=== PATIENT | male | born 1985 | race Two or more races ===

== ENCOUNTER 2018-06-13 19:05 | Emergency (ER) | payer MEDICAID ==
[~2018-06-13] VITALS: Ht 182.9 cm; Wt 74.8 kg
--- NOTE | 2018-06-13 19:20 | NUR ---
ED Nurse Note: pt is not on the waiting room when called
[2018-06-13] MEDS ORDERED: NKM (19:47)
[2018-06-13 20:00] VITALS: BP 126/69
--- NOTE | 2018-06-13 20:00 | NUR ---
ED Nurse Note: pt walked in c/o headache, sore throat and cough x 2 weeks. Pt is AO x 4times, VSS, on room air no distress. DEBID seen Pt at bedside.
[2018-06-13] MEDS ORDERED: IBUPROFEN600 MG ORAL (20:27)
[2018-06-13] MEDS ORDERED: AMOXICILLIN500 MG ORAL (20:27)
[2018-06-13 20:30] VITALS: BP 130/70
[2018-06-13 20:33] VITALS: BP 130/70
--- NOTE | 2018-06-13 20:33 | NUR ---
ER DISCHARGE NOTE: Patient is cleared to be discharged per ERMD, pt is aox4, on room air, with stable vital signs. pt was given dc and prescription instructions, pt was able to verbalize understanding, pt id band and removed without complications. pt is able to ambulate with steady gait. pt took all belongings.
--- NOTE | 2018-06-14 14:20 | Emergency Room Report ---
History of Present Illness General Chief Complaint: Flu Like Symptoms Source: Patient Present Illness HPI 32-year-old male presents ED for evaluation. Patient complaining of cough, sore throat, headache 2 weeks. Pain is dull, 5 out of 10, nonradiating. Cough productive with yellowish phlegm. denies fevers or chills. denies sick contacts or recent travels. Has tried [id number] medication without relief. Vaccinations up-to-date. No other aggravating relieving factors. Denies any other associated symptoms Allergies: Coded Allergies: ACETAMINOPHEN (Verified Allergy, Unknown, 06/13/18) Patient History Past Medical History: none Past Surgical History: none Pertinent Family History: none Social History: Denies: smoking, alcohol use, drug use Immunizations: UTD Reviewed Nursing Documentation: PMH: Agreed; PSxH: Agreed Nursing Documentation-PMH Past Medical History: No Stated History Review of Systems All Other Systems: negative except mentioned in HPI Physical Exam Vital Signs Date Time Temp Pulse Resp B/P (MAP) Pulse Ox O2 Delivery O2 Flow Rate FiO2 06/13/18 19:44 98.1 85 16 128/78 96 Nasal Cannula Sp02 EP Interpretation: reviewed, normal General Appearance: no apparent distress, alert, GCS 15, non-toxic Head: normocephalic, atraumatic Eyes: bilateral eye normal inspection, bilateral eye PERRL ENT: hearing grossly normal, normal pharynx, no angioedema, normal voice Neck: full range of motion, supple/symm/no masses Respiratory: chest non-tender, lungs clear, normal breath sounds, speaking full sentences Cardiovascular #1: regular rate, rhythm, no edema Cardiovascular #2: 2+ carotid (R), 2+ carotid (L), 2+ radial (R), 2+ radial (L) , 2+ dorsalis pedis (R), 2+ dorsalis pedis (L) Gastrointestinal: normal bowel sounds, non tender, soft, non-distended, no guarding, no rebound Rectal: deferred Genitourinary: normal inspection, no CVA tenderness Musculoskeletal: back normal, gait/station normal, normal range of motion, non- tender Neurologic: alert, oriented x3, responsive, motor strength/tone normal, sensory intact, speech normal Psychiatric: judgement/insight normal, memory normal, mood/affect normal, no suicidal/homicidal ideation Reflexes: 3+ bicep (R), 3+ bicep (L), 3+ tricep (R), 3+ tricep (L), 3+ knee (R) , 3+ knee (L) Skin: normal color, no rash, warm/dry, well hydrated Lymphatic: no adenopathy Medical Decision Making Diagnostic Impression: Primary Impression: Atypical pneumonia ER Course Hospital Course 32-year-old male presents ED complaining of bodyaches and cough x2 weeks Differential diagnoses include: URI, pharyngitis, otitis media, asthma Clinical course Patient placed on stretcher. After initial history, physical exam reveals a male in no acute distress. Bilateral TM unremarkable. No pharyngeal erythema. No tonsillar exudates. No lymphadenopathy. lungs clear. abdomen soft. Presentation consistent with atypical pneumonia. we will discharge with abx Safe for discharge or close outpatient follow-up. We'll provide PMD referrals Diagnosis - atypical pneumonia Stable and discharged home with Rx amoxicillin. Instructed to followup with PMD. Return to ED if symptoms recur or worsen Last Vital Signs Date Time Temp Pulse Resp B/P (MAP) Pulse Ox O2 Delivery O2 Flow Rate FiO2 06/13/18 20:33 98.4 79 18 130/70 98 Room Air Status: improved Disposition: HOME, SELF-CARE Condition: Stable Scripts Ibuprofen* (MOTRIN*) 600 Mg Tablet 600 MG ORAL Q8H PRN for For Pain, #30 TAB 0 Refills Prov: Kip Solano MD 06/13/18 Amoxicillin* (AMOXIL*) 500 Mg Capsule 500 MG ORAL THREE TIMES A DAY, #21 CAP Prov: Kip Solano MD 06/13/18 Referrals: [facility] (PCP) [facility] Patient Instructions: Community-Acquired Pneumonia, Adult, [id number] Kip Solano MD Jun 14, 2018 14:20
== END 2018-06-13 20:33 | disposition home or self-care (01) ==
LOC: EMR 20:26
DX: J18.9 Pneumonia, unspecified organism (principal); Z88.6 Allergy status to analgesic agent
CPT/HCPCS: 99282